=== PATIENT | male | born 1965 | race Caucasian/White ===

== ENCOUNTER → 2017-10-21 | Day surgery (SDC) | payer OTHER ==
[~2017-10-21] MED LIST: IV RINGERS,LACTATED 1000ML 1,000 ML IV; LIDOCAINE 1% PF 2 ML VIAL. ID; LIDOCAINE 2% PF Vial for OR 5 ML VIAL.; MIDAZOLAM HCL/PF 2 MG/2 ML VIAL. IV; PROPOFOL 40 ML IV; fentaNYL PF VIAL 100 MCG/2 ML VIAL IV
[2017-10-21] MEDS: IV RINGERS,LACTATED 1000ML 1,000 ML IV (11:55)
== END | disposition home or self-care (01) ==
LOC: SURG 11:14
DX: Z12.11 Encounter for screening for malignant neoplasm of colon (principal); D12.5 Benign neoplasm of sigmoid colon; D12.8 Benign neoplasm of rectum; K57.30 Diverticulosis of large intestine without perforation or abscess without bleeding; K64.0 First degree hemorrhoids; F17.210 Nicotine dependence, cigarettes, uncomplicated; Z72.89 Other problems related to lifestyle; Z79.899 Other long term (current) drug therapy
CPT/HCPCS: 45380; 45385; 88305; J2001; J2704

== ENCOUNTER 2018-11-15 02:55 | Observation (INO) | payer OTHER ==
[~2018-11-15] VITALS: Ht 185.4 cm; Wt 95.8 kg
[~2018-11-15 02:55] MED LIST changes: -IV RINGERS,LACTATED 1000ML 1,000 ML IV; -LIDOCAINE 1% PF 2 ML VIAL. ID; -LIDOCAINE 2% PF Vial for OR 5 ML VIAL.; -MIDAZOLAM HCL/PF 2 MG/2 ML VIAL. IV; -PROPOFOL 40 ML IV; +ZOLP10TA PO; -fentaNYL PF VIAL 100 MCG/2 ML VIAL IV
[2018-11-15 03:21] LABS: BASO # 0.1 x10^3/uL (0.0-0.2); BASO % 1 % (0-3); EOS # 0.1 x10^3/uL (0.0-0.7); EOS % 1 % (0-3); HEMATOCRIT 48.5 % (39.0-53.0); HEMOGLOBIN 16.3 g/dL (13.0-17.5); LYMPH # 3.2 x10^3/uL (1.0-4.8); LYMPH % 32 % (24-48); MEAN CORPUSCULAR HEMOGLOBIN 31 pg (25-35); MEAN CORPUSCULAR HGB CONC 34 g/dL (31-37); MEAN CORPUSCULAR VOLUME 92 fL (79-100); MONO # 0.6 x10^3/uL (0.0-1.1); MONO % 6 % (0-9); NEUT # 5.9 x10^3/uL (1.8-7.7); NEUT % 59 % (31-73); PLATELET COUNT 326 x10^3/uL (140-400); RED BLOOD COUNT 5.29 x10^6/uL (4.30-5.70); RED CELL DISTRIBUTION WIDTH 13.6 % (11.5-14.5); WHITE BLOOD COUNT 9.9 x10^3/uL (4.0-11.0)
[2018-11-15 03:30] LABS: PROTHROMBIN TIME PATIENT 12.2 SEC (11.7-14.0)
[2018-11-15] MEDS ORDERED: ONDANSETRON PF 4 MG/2 ML VIAL. IV ONE (03:30)
[2018-11-15] MEDS ORDERED: IV NORMAL SALINE 1000ML BAG 1,000 ML IV ONE ×2 (03:30)
[2018-11-15] MEDS ORDERED: ASPIRIN 325 MG TABLET PO ONE (03:30)
[2018-11-15 03:35] LABS: CALCIUM 8.7 mg/dL (8.5-10.1); CREATININE 1.4 mg/dL (0.7-1.3); GFR 52.6; POTASSIUM 3.8 mmol/L (3.5-5.1)
[2018-11-15 03:41] LABS: ALBUMIN 3.7 g/dL (3.4-5.0); MAGNESIUM 1.8 mg/dL (1.8-2.4); TOTAL BILIRUBIN 0.3 mg/dL (0.2-1.0); TOTAL PROTEIN 7.4 g/dL (6.4-8.2)
[2018-11-15] MEDS ORDERED: CONTRAST GIVEN. MC PRN (04:00)
[2018-11-15] MEDS ORDERED: ONDANSETRON PF 4 MG/2 ML VIAL. IV PRN (04:00)
[2018-11-15] MEDS ORDERED: fentaNYL PF VIAL 100 MCG/2 ML VIAL IV PRN (04:00)
--- NOTE | 2018-11-15 04:00 | PHYS DOC ---
Past Medical History Past Medical History: No Pertinent History Past Surgical History: No Surgical History Smoking: Cigarettes Alcohol Use: None Drug Use: None Adult General Chief Complaint Chief Complaint: CHEST PAIN HPI HPI Patient is a 53yo M w/ no significant PMH who presents w/ mid-s ubsternal chest pain of sudden onset at 1 AM. Pain felt like "knuckles pressing" on chest. Pain is constant but has subsided in severity. Denies radiation of pain. Patient also reports right-sided RAE that began at 5:30pm. Denies leg swelling or calf tenderness. Denies trauma. Denies fever/chills. Review of Systems Review of Systems Constitutional: Denies fever or chills. Eyes: Denies redness. Reports right eye pain. HENT: Denies nasal congestion or sore throat Respiratory: Denies cough or shortness of breath Cardiovascular: Reports mid-substernal chest pain. Heart is regular rate and rhythm w/o gallops, rubs, or murmurs. GI: Reports nausea w/o vomiting. : Denies dysuria or hematuria Musculoskeletal: Denies new or worsening back pain or joint pain Neurologic: Reports right-sided focal headache w/o numbness or tingling of UE. Complete systems were reviewed and found to be within normal limits, except as documented in this note. Family History Family History Mother had open heart surgery. Brother had >1 NM. Current Medications Current Medications Current Medications Medications (Trade) Dose Ordered Sig/Moraima Start Time Stop Time Status Last Admin Dose Admin Aspirin (Janel Aspirin) 325 mg 1X ONCE 11/15/18 03:30 11/15/18 03:31 DC 11/15/18 03:18 325 MG Fentanyl Citrate (Fentanyl 2ml Vial) 50 mcg PRN Q2HRS PRN 11/15/18 04:00 Info (CONTRAST GIVEN -- Rx MONITORING) 1 each PRN DAILY PRN 11/15/18 04:00 11/17/18 03:59 Iohexol (Omnipaque 350 Mg/ml) 75 ml 1X ONCE 11/15/18 04:30 11/15/18 04:31 DC 11/15/18 04:12 75 ML Ondansetron HCl (Zofran) 4 mg PRN Q8HRS PRN 11/15/18 04:00 11/16/18 03:59 Sodium Chloride 1,000 ml @ 1,000 mls/hr 1X ONCE 11/15/18 03:30 11/15/18 04:29 DC 11/15/18 04:20 1,000 MLS/HR Allergies Allergies Allergies Coded Allergies Type Severity Reaction Last Updated Verified No Known Drug Allergies 10/21/17 No Physical Exam Physical Exam Constitutional: Well developed, well nourished, no acute distress, non-toxic appearance HENT: Normocephalic, atraumatic, oropharynx moist Eyes: PERRL, EOMI, conjunctiva normal, no discharge Neck: Normal range of motion, no tenderness, supple Cardiovascular: Heart rate normal, regular rhythm Lungs & Thorax: Bilateral breath sounds clear to auscultation, no wheezing Abdomen: Soft, no tenderness Skin: Warm, dry, no erythema, no rash Back: No tenderness, no CVA tenderness Extremities: No tenderness, ROM intact, no edema Neurologic: Alert and oriented X 3, normal motor function, normal sensory function, no focal deficits noted Psychologic: Affect flat, judgement normal, mood normal Current Patient Data Vital Signs Vital Signs Date Time Temp Pulse Resp B/P (MAP) Pulse Ox O2 Delivery O2 Flow Rate FiO2 11/15/18 03:08 97.7 114 16 171/98 (122) 92 Room Air 97.7 Lab Values Laboratory Tests Test 11/15/18 03:10 White Blood Count 9.9 x10^3/uL (4.0-11.0) Red Blood Count 5.29 x10^6/uL (4.30-5.70) Hemoglobin 16.3 g/dL (13.0-17.5) Hematocrit 48.5 % (39.0-53.0) Mean Corpuscular Volume 92 fL (79-100) Mean Corpuscular Hemoglobin 31 pg (25-35) Mean Corpuscular Hemoglobin Concent 34 g/dL (31-37) Red Cell Distribution Width 13.6 % (11.5-14.5) Platelet Count 326 x10^3/uL (140-400) Neutrophils (%) (Auto) 59 % (31-73) Lymphocytes (%) (Auto) 32 % (24-48) Monocytes (%) (Auto) 6 % (0-9) Eosinophils (%) (Auto) 1 % (0-3) Basophils (%) (Auto) 1 % (0-3) Neutrophils # (Auto) 5.9 x10^3/uL (1.8-7.7) Lymphocytes # (Auto) 3.2 x10^3/uL (1.0-4.8) Monocytes # (Auto) 0.6 x10^3/uL (0.0-1.1) Eosinophils # (Auto) 0.1 x10^3/uL (0.0-0.7) Basophils # (Auto) 0.1 x10^3/uL (0.0-0.2) Prothrombin Time 12.2 SEC (11.7-14.0) Prothrombin Time INR 0.9 (0.8-1.1) PTT 26 SEC (24-38) D-Dimer (Nicolette) 0.64 ug/mlFEU (0.00-0.50) H Sodium Level 139 mmol/L (136-145) Potassium Level 3.8 mmol/L (3.5-5.1) Chloride Level 102 mmol/L (98-107) Carbon Dioxide Level 25 mmol/L (21-32) Anion Gap 12 (6-14) Blood Urea Nitrogen 17 mg/dL (8-26) Creatinine 1.4 mg/dL (0.7-1.3) H Estimated GFR (Cockcroft-Gault) 52.6 BUN/Creatinine Ratio 12 (6-20) Glucose Level 129 mg/dL (70-99) H Calcium Level 8.7 mg/dL (8.5-10.1) Magnesium Level 1.8 mg/dL (1.8-2.4) Total Bilirubin 0.3 mg/dL (0.2-1.0) Aspartate Amino Transferase (AST) 21 U/L (15-37) Alanine Aminotransferase (ALT) 36 U/L (16-63) Alkaline Phosphatase 79 U/L (46-116) Creatine Kinase 100 U/L (39-308) Creatine Kinase MB (Mass) 0.7 ng/mL (0.0-3.6) Creatine Kinase MB Relative Index 0.7 % (0-4) Troponin I Quantitative < 0.017 ng/mL (0.000-0.055) WR-Wxc-[id number]-Type Natriuretic Peptide 18 pg/mL (0-124) Total Protein 7.4 g/dL (6.4-8.2) Albumin 3.7 g/dL (3.4-5.0) Albumin/Globulin Ratio 1.0 (1.0-1.7) Lipase 142 U/L (73-393) Laboratory Tests 11/15/18 03:10 Laboratory Tests 11/15/18 03:10 EKG EKG @0304 sinus tachycardia at 112 BPM w/o ST elevation. No previous EKG.[] Radiology/Procedures Radiology/Procedures PROCEDURE: CT ANGIOGRAPHY CHEST RS Compliance Statement: One or more of the following individualized dose reduction techniques were utilized for this examination: 1. Automated exposure control 2. Adjustment of the mA and/or kV according to patient size 3. Use of iterative reconstruction technique CT CHEST WITH CONTRAST, PULMONARY ANGIOGRAM History: Chest pain, elevated d-dimer. Comparison: None. Technique: Helical CT of the chest was performed after the administration of 75 cc of Omnipaque 350 intravenous contrast according to PE protocol. Axial and coronal reconstructions were obtained. 3-D MIP images were constructed to better evaluate the pulmonary arteries. Findings: Pulmonary arteries are adequately opacified. There is no evidence of pulmonary embolism. No thoracic aortic dissection. There is no adenopathy in the chest. Great vessels are normal caliber. Cardiac size normal, no pericardial effusion. There is no pleural effusion. Minimal retained secretions or mucous dependently in the distal trachea. Mild atelectasis or scarring in the bilateral lower lobes posteriorly. Visualized upper abdomen is unremarkable. The thoracic spine alignment is maintained. IMPRESSION: There is no CT evidence of pulmonary embolus. Electronically signed by: Osmel Cardona MD (11/15/2018 4:42 AM) [facility] Course & Med Decision Making Course & Med Decision Making Pertinent Labs and Imaging studies reviewed. (See chart for details) Patient presents with report of chest pain. Patient has cardiac risk factors of former smoker and significant family history. Heart score 3. EKG stable. Labs obtained and posted to chart. Initial troponin within normal limits. D-dimer slightly elevated. CT angio chest without acute process.Patient requiring admission for further evaluation and treatment. Discussed with Dr. Whitlock (PCP) who is in agreement with admission. Discussed findings and plan with patient and family, who acknowledge understanding and agreement. Dragon Disclaimer Dragon Disclaimer This electronic medical record was generated, in whole or in part, using a voice recognition dictation system. Departure Departure Impression: Primary Impression: Chest pain, rule out acute myocardial infarction Disposition: ADMITTED INPATIENT Admitting Physician: Ellen Whitlock Condition: GUARDED Referrals: ELLEN WHITLOCK MD (PCP) The HEART Score for CP Pts HEART Score for Chest Pain: HEART Score for Chest Pain Response (Comments) Value History Moderately Suspicious 1 ECG Normal 0 Age >45 - < 65 1 Risk Factors 1 or 2 Risk Factors 1 Troponin < Normal Limit 0 Total 3 Risk Factors: Risk Factors: Current or recent (<one month) smoker, mother and brother w/ heart disease Risk Scores: Score 0 - 3: 2.5% MACE over next 6 weeks - Discharge Home Score 4 - 6: 20.3% MACE over next 6 weeks - Admit for Clinical Observation Score 7 - 10: 72.7% MACE over next 6 weeks - Early Invasive Strategies BELL PHAM DO Nov 15, 2018 04:00
[2018-11-15] MEDS ORDERED: IOHEXOL 350 MG/ML 100 ML VIAL. IV ONE (04:30)
--- NOTE | 2018-11-15 04:45 | RAD ---
RS Compliance Statement: One or more of the following individualized dose reduction techniques were utilized for this examination: 1. Automated exposure control 2. Adjustment of the mA and/or kV according to patient size 3. Use of iterative reconstruction technique CT CHEST WITH CONTRAST, PULMONARY ANGIOGRAM History: Chest pain, elevated d-dimer. Comparison: None. Technique: Helical CT of the chest was performed after the administration of 75 cc of Omnipaque 350 intravenous contrast according to PE protocol. Axial and coronal reconstructions were obtained. 3-D MIP images were constructed to better evaluate the pulmonary arteries. Findings: Pulmonary arteries are adequately opacified. There is no evidence of pulmonary embolism. No thoracic aortic dissection. There is no adenopathy in the chest. Great vessels are normal caliber. Cardiac size normal, no pericardial effusion. There is no pleural effusion. Minimal retained secretions or mucous dependently in the distal trachea. Mild atelectasis or scarring in the bilateral lower lobes posteriorly. Visualized upper abdomen is unremarkable. The thoracic spine alignment is maintained. IMPRESSION: There is no CT evidence of pulmonary embolus. Electronically signed by: Osmel Cardona MD (11/15/2018 4:42 AM) [facility]
[2018-11-15 05:15] VITALS: BP 155/96
[2018-11-15 05:30] VITALS: BP 150/94
--- NOTE | 2018-11-15 05:37 | EKG ---
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
[2018-11-15 05:45] VITALS: BP 135/90
[2018-11-15 06:00] VITALS: BP 135/59
--- NOTE | 2018-11-15 07:04 | PDOC ---
PROGRESS NOTES Subjective Subjective Patient reports substernal chest pain has gradually resolved since admission. Objective Objective Vital Signs Date Time Temp Pulse Resp B/P (MAP) Pulse Ox O2 Delivery O2 Flow Rate FiO2 11/15/18 06:00 99 18 135/59 (84) 97 Nasal Cannula 2.0 11/15/18 05:15 98.1 98.1 Intake and Output 11/15/18 06:59 Intake Total 2000 ml Output Total 350 ml Balance 1650 ml Intake IV Total 2000 ml Output Urine Total 350 ml Physical Exam Abdomen: Normal bowel sounds, Soft, No tenderness Heart: Regular rate Extremities: No edema General: Alert, Oriented X3, No acute distress Lungs: Other (BS mildly decreased throughout but CTA) Plan Plan of Care 1. Chest pain - patient is presently pain-free. First Troponin and EKG unremarkable. Chest CTA WNL. Await Cardiology consultation and further evaluation. 2. tobaccoism - discussed, patient working towards quitting, knows this is strongly advised. 3. hyperglycemia - nonfasting lab. Patient without hx of this. Check A1C. Comment Review of Relevant I have reviewed the following items laura (where applicable) has been applied. Labs Laboratory Tests Test 11/15/18 03:10 White Blood Count 9.9 x10^3/uL (4.0-11.0) Red Blood Count 5.29 x10^6/uL (4.30-5.70) Hemoglobin 16.3 g/dL (13.0-17.5) Hematocrit 48.5 % (39.0-53.0) Mean Corpuscular Volume 92 fL (79-100) Mean Corpuscular Hemoglobin 31 pg (25-35) Mean Corpuscular Hemoglobin Concent 34 g/dL (31-37) Red Cell Distribution Width 13.6 % (11.5-14.5) Platelet Count 326 x10^3/uL (140-400) Neutrophils (%) (Auto) 59 % (31-73) Lymphocytes (%) (Auto) 32 % (24-48) Monocytes (%) (Auto) 6 % (0-9) Eosinophils (%) (Auto) 1 % (0-3) Basophils (%) (Auto) 1 % (0-3) Neutrophils # (Auto) 5.9 x10^3/uL (1.8-7.7) Lymphocytes # (Auto) 3.2 x10^3/uL (1.0-4.8) Monocytes # (Auto) 0.6 x10^3/uL (0.0-1.1) Eosinophils # (Auto) 0.1 x10^3/uL (0.0-0.7) Basophils # (Auto) 0.1 x10^3/uL (0.0-0.2) Prothrombin Time 12.2 SEC (11.7-14.0) Prothromb Time International Ratio 0.9 (0.8-1.1) Activated Partial Thromboplast Time 26 SEC (24-38) D-Dimer (Nicolette) 0.64 ug/mlFEU (0.00-0.50) Sodium Level 139 mmol/L (136-145) Potassium Level 3.8 mmol/L (3.5-5.1) Chloride Level 102 mmol/L (98-107) Carbon Dioxide Level 25 mmol/L (21-32) Anion Gap 12 (6-14) Blood Urea Nitrogen 17 mg/dL (8-26) Creatinine 1.4 mg/dL (0.7-1.3) Estimated GFR (Cockcroft-Gault) 52.6 BUN/Creatinine Ratio 12 (6-20) Glucose Level 129 mg/dL (70-99) Calcium Level 8.7 mg/dL (8.5-10.1) Magnesium Level 1.8 mg/dL (1.8-2.4) Total Bilirubin 0.3 mg/dL (0.2-1.0) Aspartate Amino Transf (AST/SGOT) 21 U/L (15-37) Alanine Aminotransferase (ALT/SGPT) 36 U/L (16-63) Alkaline Phosphatase 79 U/L (46-116) Creatine Kinase 100 U/L (39-308) Creatine Kinase MB (Mass) 0.7 ng/mL (0.0-3.6) Creatine Kinase MB Relative Index 0.7 % (0-4) Troponin I Quantitative < 0.017 ng/mL (0.000-0.055) ZJ-Roy-C-Type Natriuretic Peptide 18 pg/mL (0-124) Total Protein 7.4 g/dL (6.4-8.2) Albumin 3.7 g/dL (3.4-5.0) Albumin/Globulin Ratio 1.0 (1.0-1.7) Lipase 142 U/L (73-393) Laboratory Tests Test 11/15/18 03:10 White Blood Count 9.9 x10^3/uL (4.0-11.0) Red Blood Count 5.29 x10^6/uL (4.30-5.70) Hemoglobin 16.3 g/dL (13.0-17.5) Hematocrit 48.5 % (39.0-53.0) Mean Corpuscular Volume 92 fL (79-100) Mean Corpuscular Hemoglobin 31 pg (25-35) Mean Corpuscular Hemoglobin Concent 34 g/dL (31-37) Red Cell Distribution Width 13.6 % (11.5-14.5) Platelet Count 326 x10^3/uL (140-400) Neutrophils (%) (Auto) 59 % (31-73) Lymphocytes (%) (Auto) 32 % (24-48) Monocytes (%) (Auto) 6 % (0-9) Eosinophils (%) (Auto) 1 % (0-3) Basophils (%) (Auto) 1 % (0-3) Neutrophils # (Auto) 5.9 x10^3/uL (1.8-7.7) Lymphocytes # (Auto) 3.2 x10^3/uL (1.0-4.8) Monocytes # (Auto) 0.6 x10^3/uL (0.0-1.1) Eosinophils # (Auto) 0.1 x10^3/uL (0.0-0.7) Basophils # (Auto) 0.1 x10^3/uL (0.0-0.2) Prothrombin Time 12.2 SEC (11.7-14.0) Prothromb Time International Ratio 0.9 (0.8-1.1) Activated Partial Thromboplast Time 26 SEC (24-38) D-Dimer (Nicolette) 0.64 ug/mlFEU (0.00-0.50) Sodium Level 139 mmol/L (136-145) Potassium Level 3.8 mmol/L (3.5-5.1) Chloride Level 102 mmol/L (98-107) Carbon Dioxide Level 25 mmol/L (21-32) Anion Gap 12 (6-14) Blood Urea Nitrogen 17 mg/dL (8-26) Creatinine 1.4 mg/dL (0.7-1.3) Estimated GFR (Cockcroft-Gault) 52.6 BUN/Creatinine Ratio 12 (6-20) Glucose Level 129 mg/dL (70-99) Calcium Level 8.7 mg/dL (8.5-10.1) Magnesium Level 1.8 mg/dL (1.8-2.4) Total Bilirubin 0.3 mg/dL (0.2-1.0) Aspartate Amino Transf (AST/SGOT) 21 U/L (15-37) Alanine Aminotransferase (ALT/SGPT) 36 U/L (16-63) Alkaline Phosphatase 79 U/L (46-116) Creatine Kinase 100 U/L (39-308) Creatine Kinase MB (Mass) 0.7 ng/mL (0.0-3.6) Creatine Kinase MB Relative Index 0.7 % (0-4) Troponin I Quantitative < 0.017 ng/mL (0.000-0.055) UY-Luo-S-Type Natriuretic Peptide 18 pg/mL (0-124) Total Protein 7.4 g/dL (6.4-8.2) Albumin 3.7 g/dL (3.4-5.0) Albumin/Globulin Ratio 1.0 (1.0-1.7) Lipase 142 U/L (73-393) Medications Current Medications Aspirin (Janel Aspirin) 325 mg 1X ONCE PO Last administered on 11/15/18 03:18; Start 11/15/18 at 03:30; Stop 11/15/18 at 03:31; Status DC Sodium Chloride 1,000 ml @ 1,000 mls/hr 1X ONCE IV Last administered on 11/15/18 03:18; Start 11/15/18 at 03:30; Stop 11/15/18 at 04:29; Status DC Sodium Chloride 1,000 ml @ 1,000 mls/hr 1X ONCE IV Last administered on 11/15/18 04:20; Start 11/15/18 at 03:30; Stop 11/15/18 at 04:29; Status DC Ondansetron HCl (Zofran) 4 mg 1X ONCE IV Last administered on 11/15/18at 03:23; Start 11/15/18 at 03:30; Stop 11/15/18 at 03:31; Status DC Iohexol (Omnipaque 350 Mg/ml) 75 ml 1X ONCE IV Last administered on 11/15/18at 04:12; Start 11/15/18 at 04:30; Stop 11/15/18 at 04:31; Status DC Ondansetron HCl (Zofran) 4 mg PRN Q8HRS PRN IV NAUSEA/VOMITING 1ST CHOICE; Start 11/15/18 at 04:00; Stop 11/16/18 at 03:59 Fentanyl Citrate (Fentanyl 2ml Vial) 50 mcg PRN Q2HRS PRN IV SEVERE PAIN 7-10; Start 11/15/18 at 04:00 Info (CONTRAST GIVEN -- Rx MONITORING) 1 each PRN DAILY PRN MC SEE COMMENTS; Start 11/15/18 at 04:00; Stop 11/17/18 at 03:59 Active Scripts Active Reported Ambien (Zolpidem Tartrate) 10 Mg Tablet 1 Tab PO QHS Vitals/I & O Vital Sign - Last 24 Hours 11/15/18 11/15/18 11/15/18 11/15/18 03:08 03:30 04:00 04:30 Temp 97.7 97.7 Pulse 114 102 109 110 Resp 16 18 18 18 B/P (MAP) 171/98 (122) 136/84 (101) 128/81 (97) 125/77 (93) Pulse Ox 92 90 97 97 O2 Delivery Room Air Room Air Nasal Cannula Nasal Cannula O2 Flow Rate 2.5 2.5 11/15/18 11/15/18 11/15/18 11/15/18 05:00 05:15 05:30 05:30 Temp 98.1 98.1 Pulse 108 106 106 Resp 16 16 20 B/P (MAP) 117/76 (90) 155/96 (115) 150/94 (112) Pulse Ox 95 97 97 O2 Delivery Nasal Cannula Nasal Cannula Nasal Cannula Nasal Cannula O2 Flow Rate 2.5 2.0 2.0 2.0 11/15/18 11/15/18 05:45 06:00 Pulse 101 99 Resp 18 18 B/P (MAP) 135/90 (105) 135/59 (84) Pulse Ox 96 97 O2 Delivery Nasal Cannula Nasal Cannula O2 Flow Rate 2.0 2.0 Intake and Output 11/14/18 11/14/18 11/15/18 14:59 22:59 06:59 Intake Total 2000 ml Output Total 350 ml Balance 1650 ml SONDRA ALONZO MD Nov 15, 2018 07:04
--- NOTE | 2018-11-15 07:27 | NUR ---
Patient admitted to ICU as CV OBS. patient around 0500 this morning. Patient is A/O x4, pleasant. VS WNL. States he has had no chest pain since he had the initial pressure for "two hours" earlier this morning. Admission requirements complete-- patient able to answer all questions. took belongings home. Ring and cell phone remain in room. See assessment, VS.
[2018-11-15 08:00] VITALS: BP 140/98
--- NOTE | 2018-11-15 08:15 | PDOC2 ---
CARDIAC CONSULT DATE OF CONSULT Date of Consult DATE: 11/15/18 TIME: 08:07 REASON FOR CONSULT Reason for Consult: Chest pain r/o ACS REFERRING PHYSICIAN Referring Physician: Dr. San SOURCE Source: Chart review, Patient HISTORY OF PRESENT ILLNESS HISTORY OF PRESENT ILLNESS This is a 53 male who presented secondary to chest pain. Patient reports pain began 1 am. Describes as pressure. Initially located in his left chest and then moved to his central epigastric region. No radiation to his back, arms, or neck. No associated dizziness, diaphoresis, palpitations, SOA, or nausea/vomiting. No specific worsening or relieving factors. Pain resolved upon arrival to the unit and has had none further since. No recent MERCEDES or chest pain with exertion. No prior history of CAD. Does have brother with OH in his 60's. PAST MEDICAL HISTORY Cardiovascular: No pertinent hx Pulmonary: No pertinent hx Hepatobiliary: No pertinent hx Psych: No pertinent hx Musculoskeletal: Osteoarthritis Rheumatologic: No pertinent hx Infectious disease: No pertinent hx ENT: No pertinent hx Renal/: No pertinent hx Endocrine: No pertinent hx Dermatology: No pertinent hx PAST SURGICAL HISTORY Past Surgical History: No pertinent history FAMILY HISTORY Family History: Coronary Artery Disease (brother, mother ) SOCIAL HISTORY Smoke: <1 pack per day ALCOHOL: occassional Drugs: Marijuana Lives: with Family CURRENT MEDICATIONS CURRENT MEDICATIONS Current Medications Medications (Trade) Dose Ordered Sig/Moraima Route PRN Reason Start Time Stop Time Status Last Admin Dose Admin Aspirin (Janel Aspirin) 325 mg 1X ONCE PO 11/15/18 03:30 11/15/18 03:31 DC 11/15/18 03:18 Sodium Chloride 1,000 ml @ 1,000 mls/hr 1X ONCE IV 11/15/18 03:30 11/15/18 04:29 DC 11/15/18 03:18 Sodium Chloride 1,000 ml @ 1,000 mls/hr 1X ONCE IV 11/15/18 03:30 11/15/18 04:29 DC 11/15/18 04:20 Ondansetron HCl (Zofran) 4 mg 1X ONCE IV 11/15/18 03:30 11/15/18 03:31 DC 11/15/18 03:23 Iohexol (Omnipaque 350 Mg/ml) 75 ml 1X ONCE IV 11/15/18 04:30 11/15/18 04:31 DC 11/15/18 04:12 ALLERGIES ALLERGIES: Coded Allergies: No Known Drug Allergies (Unverified , 10/21/17) ROS Review of System 14 point ROS conducted with pertinent positives noted above in HPI PHYSICAL EXAM General: Alert, Oriented X3, Cooperative, No acute distress HEENT: Atraumatic, Mucous membr. moist/pink Lungs: Clear to auscultation, Normal air movement Heart: Regular rate, Normal S1, Normal S2, No murmurs Abdomen: Soft, No tenderness Extremities: No edema, Normal pulses Skin: No significant lesion Neuro: Normal speech, Sensation intact Psych/Mental Status: Mental status NL, Mood NL MUSCULOSKELETAL: Osteoarthritic changes both hands VITALS/I&O VITALS/I&O: Vital Signs Date Time Temp Pulse Resp B/P (MAP) Pulse Ox O2 Delivery O2 Flow Rate FiO2 11/15/18 07:14 Room Air 11/15/18 06:00 99 18 135/59 (84) 97 2.0 11/15/18 05:15 98.1 98.1 I & O 11/14/18 11/14/18 11/15/18 14:59 22:59 06:59 Intake Total 2000 ml Output Total 350 ml Balance 1650 ml LABS Lab: Laboratory Tests Test 11/15/18 03:10 11/15/18 07:00 White Blood Count 9.9 x10^3/uL (4.0-11.0) Red Blood Count 5.29 x10^6/uL (4.30-5.70) Hemoglobin 16.3 g/dL (13.0-17.5) Hematocrit 48.5 % (39.0-53.0) Mean Corpuscular Volume 92 fL (79-100) Mean Corpuscular Hemoglobin 31 pg (25-35) Mean Corpuscular Hemoglobin Concent 34 g/dL (31-37) Red Cell Distribution Width 13.6 % (11.5-14.5) Platelet Count 326 x10^3/uL (140-400) Neutrophils (%) (Auto) 59 % (31-73) Lymphocytes (%) (Auto) 32 % (24-48) Monocytes (%) (Auto) 6 % (0-9) Eosinophils (%) (Auto) 1 % (0-3) Basophils (%) (Auto) 1 % (0-3) Neutrophils # (Auto) 5.9 x10^3/uL (1.8-7.7) Lymphocytes # (Auto) 3.2 x10^3/uL (1.0-4.8) Monocytes # (Auto) 0.6 x10^3/uL (0.0-1.1) Eosinophils # (Auto) 0.1 x10^3/uL (0.0-0.7) Basophils # (Auto) 0.1 x10^3/uL (0.0-0.2) Prothrombin Time 12.2 SEC (11.7-14.0) Prothrombin Time INR 0.9 (0.8-1.1) PTT 26 SEC (24-38) D-Dimer (Nicolette) 0.64 ug/mlFEU (0.00-0.50) H Sodium Level 139 mmol/L (136-145) Potassium Level 3.8 mmol/L (3.5-5.1) Chloride Level 102 mmol/L (98-107) Carbon Dioxide Level 25 mmol/L (21-32) Anion Gap 12 (6-14) Blood Urea Nitrogen 17 mg/dL (8-26) Creatinine 1.4 mg/dL (0.7-1.3) H Estimated GFR (Cockcroft-Gault) 52.6 BUN/Creatinine Ratio 12 (6-20) Glucose Level 129 mg/dL (70-99) H Calcium Level 8.7 mg/dL (8.5-10.1) Magnesium Level 1.8 mg/dL (1.8-2.4) Total Bilirubin 0.3 mg/dL (0.2-1.0) Aspartate Amino Transferase (AST) 21 U/L (15-37) Alanine Aminotransferase (ALT) 36 U/L (16-63) Alkaline Phosphatase 79 U/L (46-116) Creatine Kinase 100 U/L (39-308) Creatine Kinase MB (Mass) 0.7 ng/mL (0.0-3.6) Creatine Kinase MB Relative Index 0.7 % (0-4) Troponin I Quantitative < 0.017 ng/mL (0.000-0.055) < 0.017 ng/mL (0.000-0.055) OO-Wai-E-Type Natriuretic Peptide 18 pg/mL (0-124) Total Protein 7.4 g/dL (6.4-8.2) Albumin 3.7 g/dL (3.4-5.0) Albumin/Globulin Ratio 1.0 (1.0-1.7) Lipase 142 U/L (73-393) Laboratory Tests 11/15/18 03:10 Laboratory Tests 11/15/18 03:10 ASSESSMENT/PLAN ASSESSMENT/PLAN 1. Chest pain, atypical. Troponin series normal, AMI ruled out. 2. MARYSE vs CKD 3. Elevated d-dimer 4. Tobaccoism 6. Marijuana use Recommendations ASA Lipid panel Echo to assess LV systolic function Discussed/encouraged cessation from tobacco and marijuana Plan for outpatient ischemic evaluation unless echo significantly abnormal. ABIODUN MORA APRN Nov 15, 2018 08:14
[2018-11-15 11:00] VITALS: BP 165/101
--- NOTE | 2018-11-15 12:01 | CARD ---
MR#: [id number] Date of Study: 11/15/2018 Ordering Physician: ABIODUN MORA, Referring Physician: SONDRA ALONZO, Tech: Mary Anne Mendez APPROVED REPORT EXAM: Two-dimensional and M-mode echocardiogram with Doppler and color Doppler. Other Information Quality : GoodHR: 80bpm INDICATION Chest Pain RISK FACTORS Smoking 2D DIMENSIONS RVDd2.6 (2.9-3.5cm)Left Atrium(2D)3.7 (1.6-4.0cm) IVSd1.0 (0.7-1.1cm)Aortic Root(2D)3.0 (2.0-3.7cm) LVDd4.8 (3.9-5.9cm)LVOT Diameter2.1 (1.8-2.4cm) PWd1.3 (0.7-1.1cm)LVDs3.4 (2.5-4.0cm) FS (%) 29.4 %SV60.9 ml LVEF(%)56.2 (>50%) Aortic Valve AoV Peak Niko.110.5cm/sAoV VTI21.2cm AO Peak GR.4.9mmHgLVOT VTI 15.71cm AO Mean GR.3mmHg Mitral Valve MV E Ymcxaudy16.2cm/sMV DECEL [id number] MV A Rzkquqwt91.8cm/sE/A Ratio0.9 TDI Lateral E' P. V9.85cm/sMedial E' P. V8.56cm/s E/Lateral E'7.0E/Medial E'8.1 Tricuspid Valve RAP [id number] Pulmonary Vein S1 Gcmvzlot89.5cm/sS2 Xdulcubl85.79cm/s D2 Gviuipwa00.8cm/sPVa snznhjzn55ttab LEFT VENTRICLE The left ventricle is normal size. There is borderline concentric left ventricular hypertrophy. The l eft ventricular systolic function is normal and the ejection fraction is within normal range. The Eje ction Fraction is 55-60%. There is normal LV segmental wall motion. Transmitral Doppler flow pattern is Grade I-abnormal relaxation pattern. RIGHT VENTRICLE The right ventricle is normal size. There is normal right ventricular wall thickness. The right ventr icular systolic function is normal. ATRIA The left atrium size is normal. The right atrium size is normal. The interatrial septum is intact wit h no evidence for an atrial septal defect or patent foramen ovale as noted on 2-D or Doppler imaging. AORTIC VALVE The aortic valve is normal in structure and function. Doppler and Color Flow revealed no significant aortic regurgitation. There is no significant aortic valvular stenosis. MITRAL VALVE The mitral valve is normal in structure and function. There is no evidence of mitral valve prolapse. There is no mitral valve stenosis. Doppler and Color Flow revealed no mitral valve regurgitation note d. TRICUSPID VALVE The tricuspid valve is normal in structure and function. Doppler and Color Flow revealed no tricuspid valve regurgitation noted. There is no tricuspid valve stenosis. PULMONIC VALVE The pulmonic valve is not well visualized. Doppler and Color Flow revealed no pulmonic valvular regur gitation. GREAT VESSELS The aortic root is normal in size. The IVC is normal in size and collapses >50% with inspiration. PERICARDIAL EFFUSION There is no evidence of significant pericardial effusion. Critical Notification Critical Value: No <Conclusion> The left ventricle is normal size. The left ventricular systolic function is normal and the ejection fraction is within normal range. The Ejection Fraction is 55-60%. There is borderline concentric left ventricular hypertrophy. There is no significant aortic valvular stenosis. Doppler and Color Flow revealed no significant aortic regurgitation. Doppler and Color Flow revealed no mitral valve regurgitation noted. Doppler and Color Flow revealed no tricuspid valve regurgitation noted. Signed by : Sang Madrigal MD Electronically Approved : 11/15/2018 12:01:20
[2018-11-15] MEDS ORDERED: ASPI-630 PO ×2 (12:24→12:25)
[2018-11-15] MEDS ORDERED: LISI-338 PO (12:26)
--- NOTE | 2018-11-15 12:42 | NUR ---
Patient wanted to be D/C quickly. Order received from Cynthia DARDEN to d/c start 81 mg ASA daily, Lisinopril 5mg daily-- patient has Dr. Whalen's card, phone number to make follow-up appt for stress test PRISCILLA. Pharmacy ([facility]) verified. Education was provided on c/p and RN instructed patient to call 911 or come straight to ED w/ any worsening or re-occurring symptoms. Patient was told that Dr. Whalen would like to see patient prior to d/c today, but insisted that he was ready to leave and would see him on an outpatient basis. Dr. Whitlock spoken to, aware of d/c and would like patient to follow-up with her as well. See assessments, VS.
[2018-11-15 12:51] LABS: CHOLESTEROL/HDL RATIO 3.7
--- NOTE | 2018-11-15 13:05 | SSS ---
ADMIT DATE: 11/15/2018 23-HOUR SUMMARY This is a combined history and physician and discharge summary. CHIEF COMPLAINT: Chest pain. HISTORY OF PRESENT ILLNESS: The patient is a 53-year-old male who presented to the Emergency Room with the above complaint. He reported the onset of substernal chest pain earlier in the evening when he had been at work. The pain came on gradually, but persisted. There was no radiation of the pain and there was no shortness of breath or other symptoms accompanying it. He finished his shift at work, but when the pain persisted, he came to the Emergency Room. Initial evaluation there showed a normal troponin and an EKG without acute ischemic change. Treatment was started and he was admitted for further care. PAST MEDICAL HISTORY: Chronic insomnia, history of kidney stones. PAST SURGICAL HISTORY: None. ALLERGIES: The patient has no known drug allergies. HOME MEDICATIONS: Ambien 10 mg at bedtime p.r.n. FAMILY HISTORY: Positive for some heart disease. SOCIAL HISTORY: The patient does smoke cigarettes about one half pack per day. He does not drink alcohol to excess. He is and works for the [employer]. REVIEW OF SYSTEMS: The patient denies fever or chills. He denies cough or shortness of breath. He denies other episodes of chest pain. He denies palpitations or lightheadedness. He denies abdominal pain, nausea, or vomiting. He denies joint pain or unusual back pain. He sleeps well with the Ambien and denies problems with it. PHYSICAL EXAMINATION: GENERAL: The patient is alert and oriented x 3, resting comfortably in bed, in no acute distress. HEENT: PERRL, EOMI, sclerae clear. Oropharynx: Mucous membranes moist. NECK: Supple, without lymphadenopathy. CHEST: Breath sounds mildly decreased throughout, but clear to auscultation. CARDIOVASCULAR: Regular rhythm without murmur. ABDOMEN: Soft, nontender. Normoactive bowel sounds are present. EXTREMITIES: Lower extremities are without edema. HOSPITAL COURSE: The patient was admitted and placed on telemetry where he remained in sinus rhythm. He was seen in consultation by Cardiology. Two more troponins were completely within normal limits. He had a CTA of the chest done as his D-dimer was mildly indicated. This showed no evidence of pulmonary emboli or other acute abnormalities. The patient's chest pain gradually resolved after admission and did not recur. He had an echocardiogram which showed a preserved ejection fraction of 55-60%. There was mild amount of concentric left ventricular hypertrophy and there were no significant valvular abnormalities. Cardiology recommended that the patient be discharged home and be seen for further stress testing as an outpatient and the patient was agreeable to this. The patient had some hyperglycemia on his lab at admission, which was a nonfasting specimen. His glucose was 129. An A1c was ordered to evaluate this and was 5.7. This will be discussed with patient at his next office visit. His cholesterol was 170 with LDL 101. The importance of smoking cessation was discussed with him and he states that he is working toward quitting smoking. He understands how important this is for his health. The patient feels better and will be discharged to home today. FINAL DIAGNOSES: 1. Noncardiac chest pain. 2. Tobaccoism. 3. Hyperglycemia. DISCHARGE MEDICATIONS: Remain the same as at admission with the addition of aspirin 81 mg daily and lisinopril 5 mg daily per Cardiology recommendation. FOLLOWUP: With Dr. Whitlock within 2 weeks. Follow up with Cardiology as advised. SONDRA WHITLOCK MD DR: HERNANDEZ/julio cesar JOB#: [id number] / [id number] OPAL
[2018-11-16 01:12] LABS: HEMOGLOBIN A1C 5.7 % (4.8-5.6)
== END 2018-11-15 12:35 | disposition home or self-care (01) ==
LOC: ER 02:55 → 1 WEST ICU 03:56
PROVIDERS: ADMIT Family Medicine; ATTEND Family Medicine
DX: R07.2 Precordial pain (principal); F17.210 Nicotine dependence, cigarettes, uncomplicated; F51.04 Psychophysiologic insomnia; R73.9 Hyperglycemia, unspecified; F12.90 Cannabis use, unspecified, uncomplicated; Y99.0 Civilian activity done for income or pay; I51.7 Cardiomegaly; Z82.49 Family history of ischemic heart disease and other diseases of the circulatory system; Z87.442 Personal history of urinary calculi
CPT/HCPCS: 36415; 71275; 80053; 80061; 82553; 83036; 83690; 83735; 83880; 84484; 85025; 85379; 85610; 85730; 87641; 93005; 93306; 96374; 99284; G0378; J2405; J7030; Q9967; G0379

== ENCOUNTER 2019-04-28 23:30 | Emergency (ER) | payer OTHER ==
[~2019-04-28] VITALS: Ht 185.4 cm; Wt 90.7 kg
[~2019-04-28 23:30] MED LIST changes: +ASPI-630 PO; +LISI-338 PO
[2019-04-28 23:41] VITALS: BP 127/98
[2019-04-29] MEDS ORDERED: METH4TAB2 PO (00:29)
--- NOTE | 2019-04-29 00:30 | PHYS DOC ---
Past Medical History Past Medical History: No Pertinent History Past Surgical History: Other Additional Past Surgical Histo: ABDOMIN LUMP REMOVED Alcohol Use: None Drug Use: None Adult General Chief Complaint Chief Complaint: SKIN PROBLEM HPI HPI Patient is a 54 year old Male who presents with headache small cyst removed from his abdomen [place] this week and began taking Percocet. He states 2 days ago he began taking eyedrops for conjunctivitis. He states that tonight his abdomen began to break out in a red rash. He denies itching or any pain. Review of Systems Review of Systems Integument: rash or skin lesions [] All other systems were reviewed and found to be within normal limits, except as documented in this note. Allergies Allergies Allergies Coded Allergies Type Severity Reaction Last Updated Verified No Known Drug Allergies 10/21/17 No Physical Exam Physical Exam Constitutional: Well developed, well nourished, no acute distress, non-toxic appearance. [] HENT: Normocephalic, atraumatic, bilateral external ears normal, oropharynx moist, no oral exudates, nose normal. [] Eyes: PERRLA, EOMI, conjunctiva normal, no discharge. [] Neck: Normal range of motion, no tenderness, supple, no stridor. [] Cardiovascular:Heart rate regular rhythm, no murmur [] Lungs & Thorax: Bilateral breath sounds clear to auscultation [] Abdomen: Bowel sounds normal, soft, no tenderness, no masses, no pulsatile masses. [] Skin: Warm, dry, no erythema, maculopapular rash. [] Back: No tenderness, no CVA tenderness. [] Extremities: No tenderness, no cyanosis, no clubbing, ROM intact, no edema. [] Neurologic: Alert and oriented X 3, normal motor function, normal sensory function, no focal deficits noted. [] Psychologic: Affect normal, judgement normal, mood normal. [] Current Patient Data Vital Signs Vital Signs Date Time Temp Pulse Resp B/P (MAP) Pulse Ox O2 Delivery O2 Flow Rate FiO2 04/28/19 23:41 98.7 139 12 127/98 (108) 94 Room Air 98.7 EKG EKG [] Radiology/Procedures Radiology/Procedures [] Course & Med Decision Making Course & Med Decision Making Alert and oriented. Speaks in full clear sentences. Lungs are clear.patient follows. The patient has a pink maculopapular rash to the trunk. No hives or swelling of the face. No itching of the throat or swelling of the mouth. No respiratory distress. Incision of the wound is approximated and without infection signs. Patient is educated take Benadryl every 6 hours and I will give him a Medrol Dosepak. Dragon Disclaimer Dragon Disclaimer This electronic medical record was generated, in whole or in part, using a voice recognition dictation system. Departure Departure Impression: Primary Impression: Rash and nonspecific skin eruption Disposition: HOME, SELF-CARE Condition: STABLE Referrals: SONDRA ALONZO MD (PCP) Patient Instructions: Drug Rash Additional Instructions: Follow-up with primary care provider. Take medications as prescribed. Take Benadryl every 6 hours. Scripts Methylprednisolone (MEDROL) 4 Mg Tab.ds.pk 1 PKG PO UD, #1 PKG Prov: SIDRA TALAMANTES APRN 04/29/19 SIDRA TALAMANTES APRN Apr 29, 2019 00:29
== END 2019-04-29 00:38 | disposition home or self-care (01) ==
LOC: ER 23:30
DX: R21 Rash and other nonspecific skin eruption (principal); R51 Headache
CPT/HCPCS: 99283

== ENCOUNTER → 2020-12-27 | Outpatient (CLI) | payer OTHER ==
[~2020-12-27] MED LIST changes: -LISI-338 PO; +LISI-517 PO; +METH4TAB2 PO
--- NOTE | 2020-12-27 17:07 | RAD ---
EXAM: Reed scale and color Doppler scrotal sonogram. HISTORY: Left testicular mass. TECHNIQUE: Reed scale and color Doppler sonographic imaging of the scrotum with spectral waveform kin lysis was performed. COMPARISON: None. FINDINGS: The testes are normal in size and demonstrate normal symmetric blood flow. No focal testicu lar parenchymal lesion is seen. There is a 4 mm right epididymal head cyst. The epididymitis are othe rwise unremarkable. There is no varicocele or hydrocele. IMPRESSION: 1. 4 mm right epididymal head cyst. 2. Otherwise, unremarkable scrotal sonogram. No finding is seen to correlate with the reported left t esticular mass. Continued clinical follow-up of palpable abnormalities is recommended. Repeat imaging can be performed if there is continuing concern. Electronically signed by: Mila Griffin MD (12/27/2020 5:05 PM) [id number]
== END ==
LOC: US 11:47
PROVIDERS: ATTEND Family Medicine
DX: N45.1 Epididymitis (principal); N50.3 Cyst of epididymis; N50.89 Other specified disorders of the male genital organs
CPT/HCPCS: 76870

== ENCOUNTER 2021-04-17 21:21 | Emergency (ER) | payer OTHER ==
[~2021-04-17] VITALS: Ht 185.4 cm; Wt 88.6 kg
[~2021-04-17 21:21] MED LIST changes: -LISI-517 PO; +LISI5TAB15 PO
[2021-04-17 21:40] VITALS: BP 141/77
--- NOTE | 2021-04-17 21:51 | PHYS DOC ---
Past Medical History Past Medical History: No Pertinent History Past Surgical History: Other Additional Past Surgical Histo: ABDOMIN LUMP REMOVED Smoking Status: Current Every Day Smoker Alcohol Use: None Drug Use: None General Adult EDM: Chief Complaint: BLOOD IN URINE HPI: HPI: Patient is a 56 year old male here with right-sided flank pain, radiating to his right groin. He noted hematuria tonight. He reports urinary urgency and frequency. He reports nausea without vomiting. He denies fevers or chills. He reports that he has a history of multiple previous kidney stones, the symptoms currently feel similar to that. He has not ever required urologic intervention in the past. No previous abdominal surgeries. Symptoms have progressed since this evening. Review of Systems: Review of Systems: Constitutional: Denies fever or chills. [] HENT: Denies nasal congestion or sore throat. [] Respiratory: Denies cough or shortness of breath. [] Cardiovascular: Denies chest pain or edema. [] GI: Right flank pain, rating to the right lower abdomen, nausea, no vomiting, no diarrhea or constipation : Hematuria, urinary urgency and frequency. Denies dysuria Musculoskeletal: Right flank pain. No midline back pain. No joint pain or swelling Integument: Denies rash. [] Neurologic: Denies headache, focal weakness or sensory changes. [] ] Psychiatric: Denies depression or anxiety. [] Heart Score: C/O Chest Pain: No Risk Factors: Risk Factors: DM, Current or recent (<one month) smoker, HTN, HLP, family history of CAD, obesity. Risk Scores: Score 0 - 3: 2.5% MACE over next 6 weeks - Discharge Home Score 4 - 6: 20.3% MACE over next 6 weeks - Admit for Clinical Observation Score 7 - 10: 72.7% MACE over next 6 weeks - Early Invasive Strategies Allergies: Allergies: Allergies Coded Allergies Type Severity Reaction Last Updated Verified No Known Drug Allergies 10/21/17 No Physical Exam: PE: Constitutional: Well developed, well nourished, no acute distress, non-toxic appearance. [] HENT: Normocephalic, atraumatic, mucous membranes are moist Neck: Normal range of motion, no tenderness, supple, no stridor. [] Cardiovascular:Heart rate regular rhythm, well-perfused appearing, +2 radial and +2 dorsalis pedis pulses bilateral Lungs & Thorax: Bilateral breath sounds clear to auscultation [] Abdomen: Diminished soft, nondistended, mild suprapubic and right lower quadrant tenderness, no guarding, no rebound tenderness, normal bowel sounds, no palpable masses organomegaly, no flank or abdominal ecchymoses. Mild right- sided CVA tenderness. No palpable pulsatile mass. Skin: Warm, dry, no erythema, no rash. [] Back: Midline tenderness, no step-off or deformity. Full range of motion. Mild right-sided CVA tenderness Extremities: No tenderness, no cyanosis, no clubbing, ROM intact, no edema. No calf tenderness. Neurologic: Alert and oriented X 3, normal motor function, normal sensory function, no focal deficits noted. [] Psychologic: Affect normal, judgement normal, mood normal. He is pleasant and cooperative. EKG: EKG: [] Radiology/Procedures: Radiology/Procedures: IMAGING REPORT Signed PATIENT: SILVA MOSLEY ACCOUNT: [id number] : 1965 LOCATION: ER AGE: 56 SEX: M EXAM STATUS: REG ER ORD. PHYSICIAN: SONIA RASMUSSEN DO REASON: right flank pain, hematuria PROCEDURE: CT ABDOMEN PELVIS WO CONTRAST EXAM: CT Abdomen and Pelvis without IV contrast CLINICAL HISTORY: right flank pain, hematuria COMPARISON: none TECHNIQUE: Helical CT of the abdomen and pelvis without intravenous contrast. Axial, coronal and sagittal reformatted images were generated. PQRS compliance statement - One or more of the following individualized dose reduction techniques were utilized for this study: 1. Automated exposure control 2. Adjustment of the mA and/or kV according to patient size 3. Use of iterative reconstruction technique FINDINGS: Lack of intravenous contrast limits evaluation of solid organs, vasculature, and lymph nodes. Lower chest: Linear opacities lung bases likely scarring/atelectasis. Abdomen and Pelvis: No focal liver lesion. Gallbladder is normal. No biliary dilatation. Pancreas is unremarkable. Spleen is normal in appearance. Adrenal glands are normal in appearance. There is moderate to marked right hydronephrosis and proximal right hydroureter to the level of 6 mm calculus in the proximal right ureter. Nonobstructing left lower pole and left interpolar renal calculus. Bladder wall thickening, cystitis. Colonic diverticulosis without CT evidence for acute diverticulitis. Moderate colonic stool content. No small or large bowel dilatation. No bowel obstruction. No abdominal or pelvic ascites. Aorta is normal in caliber with intermittent atherosclerotic calcifications. Bones: No aggressive osseous lesion is seen. Degenerative changes of spine are seen. IMPRESSION: 1. Moderate to marked right hydronephrosis and hydroureter to the level of a 6 mm calculus in the proximal right ureter. 2. Nonobstructing left renal calculi. 3. Colonic diverticulosis without CT evidence for acute diverticulitis. 4. Moderate colonic stool content. No bowel obstruction. Electronically signed by: Darrius Mejias MD (04/17/2021 10:53 PM) [facility] DICTATED and SIGNED BY: DARRIUS MEJIAS MD DATE: 04/17/21 [id number] Course & Med Decision Making: Course & Med Decision Making Pertinent Labs and Imaging studies reviewed. (See chart for details) I have discussed the findings, differential diagnosis and plan of care with the patient. He currently has evidence of a rather large right-sided proximal ureteral stone, with significant hydronephrosis as well as pyuria. He has evidence of leukocytosis on laboratory exams. He is given IV fluids, IV morphine, IV Zofran, IV Toradol as well as IV Rocephin. There are no urology services here. Given the size of his stone as well as associated apparent infection, I have recommended that he be transferred to facility with urology coverage. I called multiple facilities across the city, and was able to procure a bed at [facility]. The patient is comfortable with plan for transfer there. Dr. Boyd is the accepting physician. Sara Disclaimer: Sara Disclaimer: This electronic medical record was generated, in whole or in part, using a voice recognition dictation system. Departure Departure Impression: Primary Impression: Right ureteral stone Additional Impressions: Hydronephrosis of right kidney Pyuria Disposition: 61 [facility] Condition: STABLE Referrals: SONDRA ALONZO MD (PCP) SONIA RASMUSSEN DO Apr 17, 2021 21:50
[2021-04-17 21:58] LABS: BILIRUBIN,URINE MODERATE (NEG); CLARITY,URINE CLOUDY; COLOR,URINE RED; NITRITE,URINE NEGATIVE (NEG); PH,URINE 5.5 (<5.0-8.0); PROTEIN,URINE 100 mg/dL (NEG-TRACE)
[2021-04-17 22:08] LABS: RBC,URINE TNTC /HPF (0-2)
[2021-04-17 22:11] LABS: BACTERIA,URINE 0 /HPF (0-FEW); WBC,URINE >40 /HPF (0-4)
[2021-04-17] MEDS ORDERED: IV NORMAL SALINE 1000ML BAG 1,000 ML IV ONE (22:15)
[2021-04-17] MEDS ORDERED: MORPHINE SULFATE 4 MG/ML INJ. IVP ONE ×2 (22:15→23:45)
[2021-04-17] MEDS ORDERED: ONDANSETRON PF 4 MG/2 ML VIAL. IVP ONE (22:15)
[2021-04-17 22:19] LABS: BASO # 0.2 x10^3/uL (0.0-0.2); BASO % 1 % (0-3); EOS # 0.2 x10^3/uL (0.0-0.7); EOS % 1 % (0-3); HEMATOCRIT 47.7 % (39.0-53.0); HEMOGLOBIN 16.3 g/dL (13.0-17.5); LYMPH # 3.1 x10^3/uL (1.0-4.8); LYMPH % 22 % (24-48); MEAN CORPUSCULAR HEMOGLOBIN 32 pg (25-35); MEAN CORPUSCULAR HGB CONC 34 g/dL (31-37); MEAN CORPUSCULAR VOLUME 92 fL (79-100); MONO # 0.8 x10^3/uL (0.0-1.1); MONO % 6 % (0-9); NEUT # 9.7 x10^3/uL (1.8-7.7); NEUT % 70 % (31-73); PLATELET COUNT 335 x10^3/uL (140-400); RED BLOOD COUNT 5.17 x10^6/uL (4.30-5.70); RED CELL DISTRIBUTION WIDTH 13.3 % (11.5-14.5); WHITE BLOOD COUNT 13.9 x10^3/uL (4.0-11.0)
[2021-04-17 22:29] LABS: CALCIUM 8.9 mg/dL (8.5-10.1); CREATININE 1.1 mg/dL (0.7-1.3); GFR 68.8; POTASSIUM 3.5 mmol/L (3.5-5.1)
[2021-04-17 22:35] LABS: ALBUMIN 3.4 g/dL (3.4-5.0); ALBUMIN/GLOBULIN RATIO 0.9 (1.0-1.7); TOTAL BILIRUBIN 0.2 mg/dL (0.2-1.0); TOTAL PROTEIN 7.3 g/dL (6.4-8.2)
--- NOTE | 2021-04-17 22:55 | RAD ---
EXAM: CT Abdomen and Pelvis without IV contrast CLINICAL HISTORY: right flank pain, hematuria COMPARISON: none TECHNIQUE: Helical CT of the abdomen and pelvis without intravenous contrast. Axial, coronal and sagi ttal reformatted images were generated. PQRS compliance statement - One or more of the following individualized dose reduction techniques wer e utilized for this study: 1. Automated exposure control 2. Adjustment of the mA and/or kV according to patient size 3. Use of iterative reconstruction technique FINDINGS: Lack of intravenous contrast limits evaluation of solid organs, vasculature, and lymph nodes. Lower chest: Linear opacities lung bases likely scarring/atelectasis. Abdomen and Pelvis: No focal liver lesion. Gallbladder is normal. No biliary dilatation. Pancreas is unremarkable. Spleen is normal in appearance. Adrenal glands are normal in appearance. There is moderate to marked right hydronephrosis and proximal right hydroureter to the level of 6 mm calculus in the proximal right ureter. Nonobstructing left lower pole and left interpolar renal calcu yakelin. Bladder wall thickening, cystitis. Colonic diverticulosis without CT evidence for acute diverticulitis. Moderate colonic stool content. No small or large bowel dilatation. No bowel obstruction. No abdominal or pelvic ascites. Aorta is no rmal in caliber with intermittent atherosclerotic calcifications. Bones: No aggressive osseous lesion is seen. Degenerative changes of spine are seen. IMPRESSION: 1. Moderate to marked right hydronephrosis and hydroureter to the level of a 6 mm calculus in the pr oximal right ureter. 2. Nonobstructing left renal calculi. 3. Colonic diverticulosis without CT evidence for acute diverticulitis. 4. Moderate colonic stool content. No bowel obstruction. Electronically signed by: Darrius Dexter MD (04/17/2021 10:53 PM) [facility]
[2021-04-17] MEDS ORDERED: cefTRIAXone IV Push 1 GM VIAL. IVP ONE (23:45)
[2021-04-17] MEDS ORDERED: KETOROLAC 30 MG/ML VIAL. IVP ONE (23:45)
[2021-04-18] MEDS ORDERED: MORPHINE SULFATE 4 MG/ML INJ. IVP ONE (01:30)
== END 2021-04-18 02:30 | disposition short-term general hospital (02) ==
LOC: ER 21:21
DX: N13.2 Hydronephrosis with renal and ureteral calculous obstruction (principal); R82.81 Pyuria; F17.200 Nicotine dependence, unspecified, uncomplicated
CPT/HCPCS: 36415; 74176; 80053; 81001; 83690; 85025; 87086; 96361; 96374; 96375; 96376; 99284; J0696; J1885; J2270; J2405; J7030